=== PATIENT | male | born 1980 | race American Indian/Alaskan Native ===

== ENCOUNTER 2021-11-08 11:15 | Emergency (ER) | payer MEDICAID ==
[2021-11-08 11:22] VITALS: BP 110/65
[2021-11-08] MEDS ORDERED: BENZONATATE 100 MG CAP PO ONE (14:41)
[2021-11-08] MEDS ORDERED: ACETAMINOPHEN 500 MG TAB PO ONE (14:41)
--- NOTE | 2021-11-08 15:28 | XRay Report ---
CHEST 2 VIEWS INDICATION / CLINICAL INFORMATION: cough. COMPARISON: None available. FINDINGS: SUPPORT DEVICES: None. HEART / MEDIASTINUM: No significant abnormality. LUNGS / PLEURA: No significant pulmonary or pleural abnormality. No pneumothorax. ADDITIONAL FINDINGS: No significant additional findings. IMPRESSION: 1. No acute findings. Signer Name: Zackary Longoria MD Signed: 11/08/2021 3:23 PM Workstation Name: [id number] [id number]
--- NOTE | 2021-11-08 15:48 | Emergency Department Report ---
- General Chief Complaint: Upper Respiratory Infection Stated Complaint: FLU SYMPTOMS Time Seen by Provider: 11/08/21 14:36 Source: patient, EMS Mode of arrival: Ambulatory Limitations: No Limitations - History of Present Illness Initial Comments: This is a 41-year-old male nontoxic, well nourished in appearance, no acute signs of distress presents to the ED with c/o of productive cough, body aches, rhinorrhea, nasal congestion x several days. Patient describes productive cough as yellow mucus production. Patient denies any sick contacts. Denies being COVID vaccinated. Patient denies any recent travels, long car, recent hospital stays. Patient denies any calf pain or calf tenderness. Patient denies any chest pain, short of breath, fever, chills, nausea, vomiting, hemoptysis, numbness, tingling, headache or stiff neck. Denies any allergies. MD Complaint: cough, rhinorrhea, nasal congestion -: days(s) Severity: mild Severity scale (0 -10): 3 Quality: aching Consistency: constant Improves With: nothing Worsens With: nothing Associated Symptoms: rhinorrhea, nasal congestion, cough. denies: fever, chills, myalgias, diaphoresis, headache, sore throat, stiff neck, chest pain, shortness of breath, abdominal pain, nausea, vomiting, diarrhea, dysuria, rash, confusion, right sweats, weight loss, epistaxis, hoarseness, ear pain Treatments Prior to Arrival: none - Related Data Previous Rx's Medication Instructions Recorded Last Taken Type Benzonatate [Tessalon Perles] 100 mg PO Q8HR PRN #12 cap 11/08/21 Unknown Rx Allergies Allergy/AdvReac Type Severity Reaction Status Date / Time No Known Allergies Allergy Unverified 11/08/21 11:22 ED Review of Systems ROS: Stated complaint: FLU SYMPTOMS Other details as noted in HPI Comment: All other systems reviewed and negative Constitutional: denies: chills, fever Eyes: denies: eye pain, eye discharge, vision change ENT: denies: ear pain, throat pain Respiratory: cough. denies: shortness of breath, wheezing Cardiovascular: denies: chest pain, palpitations Endocrine: no symptoms reported Gastrointestinal: denies: abdominal pain, nausea, diarrhea Genitourinary: denies: urgency, dysuria Musculoskeletal: denies: back pain, joint swelling, arthralgia Skin: denies: rash, lesions Neurological: denies: headache, weakness, paresthesias Psychiatric: denies: anxiety, depression Hematological/Lymphatic: denies: easy bleeding, easy bruising ED Past Medical Hx - Medications Home Medications: Home Medications Medication Instructions Recorded Confirmed Last Taken Type Benzonatate [Tessalon Perles] 100 mg PO Q8HR PRN #12 cap 11/08/21 Unknown Rx ED Physical Exam - General Limitations: No Limitations General appearance: alert, in no apparent distress - Head Head exam: Present: atraumatic, normocephalic - Eye Eye exam: Present: normal appearance, PERRL, EOMI - ENT ENT exam: Present: normal exam, normal orophraynx - Neck Neck exam: Present: normal inspection, full ROM. Absent: tenderness, meningismus, lymphadenopathy - Respiratory Respiratory exam: Present: normal lung sounds bilaterally. Absent: respiratory distress, wheezes, rales, rhonchi, stridor, chest wall tenderness, accessory muscle use, decreased breath sounds, prolonged expiratory - Cardiovascular Cardiovascular Exam: Present: regular rate, normal rhythm, normal heart sounds. Absent: bradycardia, tachycardia, irregular rhythm, systolic murmur, diastolic murmur, rubs, gallop - GI/Abdominal GI/Abdominal exam: Present: soft. Absent: distended, tenderness - Extremities Exam Extremities exam: Present: full ROM - Back Exam Back exam: Present: normal inspection, full ROM - Neurological Exam Neurological exam: Present: alert, oriented X3, normal gait - Psychiatric Psychiatric exam: Present: normal affect, normal mood - Skin Skin exam: Present: warm, dry, intact, normal color. Absent: rash ED Course Vital Signs 11/08/21 11:19 Temperature 98.4 F Pulse Rate 72 Respiratory 16 Rate Blood Pressure 110/65 [Left] O2 Sat by Pulse 95 Oximetry - Reevaluation(s) Reevaluation #1: 11/08/21 15:49 Patient is speaking in full sentences with no signs of distress noted. ED Medical Decision Making - Radiology Data [facility] [address] [place] [address] XRay Report Signed Patient: YAZ FLORES MR#: [id number] : 1980 Acct:[id number] Age/Sex: 41 / M ADM Date: 11/08/21 Loc: ED Attending Dr: Ordering Physician: ANA LILIA LUZ NP Date of Service: 11/08/21 Procedure(s): XR chest routine 2V Accession Number(s): [id number] cc: ANA LILIA LUZ NP Fluoro Time In Minutes: CHEST 2 VIEWS INDICATION / CLINICAL INFORMATION: cough. COMPARISON: None available. FINDINGS: SUPPORT DEVICES: None. HEART / MEDIASTINUM: No significant abnormality. LUNGS / PLEURA: No significant pulmonary or pleural abnormality. No pneumothorax. ADDITIONAL FINDINGS: No significant additional findings. IMPRESSION: 1. No acute findings. Signer Name: Zackary Longoria MD Signed: 11/08/2021 3:23 PM Workstation Name: [id number] Transcribed By: TL Dictated By: Zackary Longoria MD Electronically Authenticated By: Zackary Longoria MD Signed Date/Time: 11/08/211522 DD/ 22 TD/TT: - Medical Decision Making This is a 41-year-old male that presents with viral respiratory infection. Patient is stable and was examined by me. Chest x-ray has been obtained and dictated by radiologist with normal exam. Patient is notified of x-ray results with no questions noted. Patient does meet clinical concerns of COVID-19 and patient was instructed and educated on signs and symptoms and to self quarantine and seek medical attention as soon as possible if symptoms does worsen and continue. Patient was instructed to increase hydration, rest and take Tylenol for fever episodes. Patient received Tylenol and tesslone perrls in the ED. Vitals stable. Patient is nonfebrile and normal heart rate. Patient was instructed Follow-up with a primary care doctor in 3-5 days or if symptoms worsen and continue return to emergency room as soon as possible. At time time of discharge, the patient does not seem toxic or ill in appearance. No acute signs of distress noted. Patient agrees to discharge treatment plan of care. No further questions noted by the patient.nt. Critical care attestation.: If time is entered above; I have spent that time in minutes in the direct care of this critically ill patient, excluding procedure time. ED Disposition Clinical Impression: Viral respiratory illness Disposition: HOME / SELF CARE / HOMELESS Is pt being admited?: No Does the pt Need Aspirin: No Condition: Stable Instructions: Viral Respiratory Infection, [id number] Additional Instructions: Follow-up with a primary care doctor in 3-5 days or if symptoms worsen and continue return to emergency room as soon as possible. Your symptoms appear most consistent with a nonspecific viral syndrome. However, given this current pandemic, COVID-19 is in the differential of possibilities. Despite your previous negative COVID-19 test, I do recommend repeat outpatient Covid 19 testing. In the meantime, isolate/quarantine yourself and stay away from anyone who is elderly, immunocompromised or chronically ill. Please see your nearest health department or primary care doctor that you are referred to for COVID testing. Increased rest, hydration, and take [id number] Tylenol as directed from instructions label for pain/fever episode. Prescriptions: Benzonatate [Tessalon Perles] 100 mg PO Q8HR PRN #12 cap PRN Reason: Cough Referrals: PRIMARY CAREMD [Referring] - 3-5 Days AG BARRAZA MD [Staff Physician] - 3-5 Days Time of Disposition: 16:45
== END 2021-11-08 17:32 | disposition home or self-care (01) ==
LOC: ED 11:15
DX: J06.9 Acute upper respiratory infection, unspecified (principal); B97.89 Other viral agents as the cause of diseases classified elsewhere
CPT/HCPCS: 71046; 99283